=== PATIENT | female | born 1975 | race Caucasian/White ===

== ENCOUNTER 2020-06-01 14:21 | Emergency (ER) | payer MEDICAID ==
[~2020-06-01] VITALS: Ht 170.2 cm; Wt 85.3 kg
[2020-06-01 14:37] VITALS: Ht 170.2 cm; Wt 85.3 kg
[2020-06-01 15:10] LABS: BASOPHIL % 0.4 % (0-2); PLATELET COUNT 355 x10^3mcL (130-400)
[2020-06-01 15:23] LABS: CALCIUM 9.2 mg/dL (8.5-10.1); CARBON DIOXIDE 27.3 mmol/L (21-32); CHLORIDE SERUM 99 mmol/L (98-107); CREATININE SERUM 0.8 mg/dL (0.6-1.0); GFR1 > 60 mL/min; GLUCOSE SERUM 159 mg/dL (74-106); POTASSIUM SERUM 3.5 mmol/L (3.5-5.1); SODIUM SERUM 136 mmol/L (136-145)
[2020-06-01 15:33] LABS: ALKALINE PHOSPHATASE 87 U/L (46-116); ALT/SGPT 19 U/L (14-59); AST/SGOT 13 U/L (15-37); BILIRUBIN TOTAL 0.3 mg/dL (0.20-1.00); C REACTIVE PROTEIN 5.8 mg/dL (<=0.9); TOTAL PROTEIN, SERUM 7.4 g/dL (6.4-8.2)
[2020-06-01 18:10] VITALS: BP 129/89
== END 2020-06-01 18:10 | disposition home or self-care (01) ==
LOC: ED 14:21
PROVIDERS: Emergency Medicine
DX: L02.416 Cutaneous abscess of left lower limb (principal); Z98.890 Other specified postprocedural states
CPT/HCPCS: J1885; J2001; J2543; J3370; J7030